=== PATIENT | male | born 1955 | race Caucasian/White ===

== ENCOUNTER 2024-12-11 06:05 | Emergency (ER) | payer MEDICARE ==
[~2024-12-11] VITALS: Ht 170.2 cm; Wt 66.5 kg
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
--- NOTE | 2024-12-11 07:58 | RADIOLOGY REPORT ---
CLINICAL INFORMATION: Head injury. Now with hand numbness. TECHNIQUE: Axial imaging was obtained through the brain without contrast. Axial CT imaging of the ce rvical spine was also obtained without contrast. Coronal and sagittal reformatted images were obtaine d, reviewed, and stored. One or more of the following dose reduction techniques were used: Automated exposure control. Adjustment of mA and/or kV according to patient size. CTDIvol = 61.44, 20.07 mGy DLP = 1156.38, 446.95 mGy-cm COMPARISON: None FINDINGS: CT HEAD: There is no acute intracranial hemorrhage or extraaxial fluid collection. No mass effect or midline shift. The ventricles and sulci are within normal limits in size for age. Basal cisterns are patent. Scattered areas of hypoattenuation are seen in the periventricular and subcortical white ma tter, which are nonspecific but most likely sequelae of small vessel ischemic disease.The calvarium i s unremarkable. Paranasal sinuses and mastoid air cells are clear. CT CERVICAL SPINE: There is straightening of the normal cervical lordosis. No significant spondyloli sthesis. Vertebral body heights are maintained. Posterior elements are intact. No evidence of acute f racture. Multilevel moderate to severe disc space narrowing with associated endplate sclerosis and en dplate spurring. Multilevel facet and uncinate hypertrophy with areas of severe neural foraminal leon nosis. Prevertebral and paraspinal soft tissues are unremarkable. Moderate calcification of the carot id bifurcations bilaterally. IMPRESSION: 1. No CT evidence of acute intracranial abnormality. 2. No acute fracture or spondylolisthesis in the cervical spine. 3. Straightening of the normal cervical lordosis, may be positional or due to muscle spasm. 4. 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 5. Additional findings as detailed above.
[2024-12-11 09:52] VITALS: BP 114/80; PULSE 87; RESP 16; TEMP 97.6; O2SAT 98
== END 2024-12-11 09:55 | disposition home or self-care (01) ==
LOC: ER 06:08
DX: R20.0 Anesthesia of skin (principal); M54.2 Cervicalgia; R51.9 Headache, unspecified; Z88.0 Allergy status to penicillin; Z95.0 Presence of cardiac pacemaker
CPT/HCPCS: 70450; 72125; 99284